=== PATIENT | male | born 1975 ===

== ENCOUNTER 2022-04-28 17:22 | Outpatient (REF) | payer SELFPAY ==
[2022-04-28 17:38] LABS: Imm Gran Abs Auto 0.03 X10*3/uL (0.00-0.03); Imm Gran Pct Auto 0.4 % (0.0-0.4); Lymphocytes Percent Auto 21.8 % (20-40); MANUAL DIFF FLAG SCAN; Red Blood Count 5.58 X10*6/uL (4.60-5.80); SCAN SMEAR FLAG 1
[2022-04-28 17:40] LABS: Basophils Absolute Auto 0.1 X10*3/uL (0.0-0.2); Eosinophils Percent Auto 0.5 % (0-4); Hematocrit 42.9 % (42.0-52.0); Hemoglobin 13.1 g/dl (14.0-18.0); Lymphocytes Absolute Auto 1.8 X10*3/uL (1.2-4.9); Mean Corpuscular HGB Conc 30.5 g/dl (31.0-36.0); Mean Corpuscular Hemoglobin 23.5 pg (27.0-33.0); Mean Corpuscular Volume 76.9 fL (80.0-98.0); Mean Platelet Volume 11.2 fL (9.4-12.4); Monocytes Percent Auto 11.8 % (2-11); Neutrophils Absolute Auto 5.2 x10*3/uL (2.0-8.3); Neutrophils Percent Auto 64.5 % (45-73); Platelet Count 237 X10*3/uL (160-400); Red Cell Distribution Width 22.7 % (11.0-16.0)
[2022-04-28 17:41] LABS: PLT ABN DIST 1
[2022-04-28 17:47] LABS: INTERNATIONAL NORM RATIO 2.9 (0.9-1.1); Prothrombin Time 35.2 SEC (10.0-13.1)
[2022-04-28 17:58] LABS: Anion Gap 14 (12-20); Blood Urea Nitrogen 11 mg/dL (9-16); Calcium 9.1 mg/dL (8.4-10.2); Carbon Dioxide 27 mmol/L (22-29); Chloride 100 mmol/L (96-108); Estimated Glomerular Filt Rate > 60; Glucose Random 83 mg/dL (60-115); Potassium 4.1 mmol/L (3.3-5.1); Sodium 137 mmol/L (135-145)
[2022-04-28 18:15] LABS: SLIDE REVIEW VERIFIED
== END 2022-04-28 17:23 | disposition home or self-care (01) ==
LOC: HO.LNP 17:22
PROVIDERS: Visit Provider Internal Medicine Infectious Disease
DX: L97.329 Non-pressure chronic ulcer of left ankle with unspecified severity (principal)
CPT/HCPCS: 80048; 85025; 85610